=== PATIENT | female | born 2000 | race Caucasian/White ===

== ENCOUNTER 2023-09-06 09:10 | Emergency (ER) | payer OTHER ==
[~2023-09-06] VITALS: Ht 152.4 cm; Wt 120.0 kg
[2023-09-06] MEDS: RABIES VACCINE HUMAN 2.5 INTERNATIONAL UNITS/ML VIAL IM.IMMUN ONE (12:31)
[2023-09-06] MEDS: RABIES IMMUNE GLOBULIN 1500 INTERNATIONAL UNIT/5ML VIAL IM.IMMUN ONE (12:33)
[2023-09-06 13:43] VITALS: BP 131/81; TEMP 97.5; O2SAT 99
== END 2023-09-06 13:44 | disposition home or self-care (01) ==
LOC: M ED 09:10
DX: Z29.14 Encounter for prophylactic rabies immune globulin (principal); Z23 Encounter for immunization

== ENCOUNTER 2023-09-09 10:14 | Emergency (ER) | payer OTHER ==
[~2023-09-09] VITALS: Ht 152.4 cm; Wt 119.7 kg
[2023-09-09] MEDS: RABIES VACCINE HUMAN 2.5 INTERNATIONAL UNITS/ML VIAL IM ONE (12:26)
[2023-09-09 13:12] VITALS: BP 119/75; TEMP 97.8; O2SAT 98
== END 2023-09-09 13:13 | disposition home or self-care (01) ==
LOC: M ED 10:14
DX: Z29.14 Encounter for prophylactic rabies immune globulin (principal); Z23 Encounter for immunization

== ENCOUNTER 2023-09-13 07:31 | Emergency (ER) | payer OTHER ==
[~2023-09-13] VITALS: Ht 152.4 cm; Wt 119.7 kg
[2023-09-13] MEDS: RABIES VACCINE HUMAN 2.5 INTERNATIONAL UNITS/ML VIAL IM ONE (10:06)
[2023-09-13 10:29] VITALS: BP 141/69; TEMP 98.4; O2SAT 100
== END 2023-09-13 10:37 | disposition home or self-care (01) ==
LOC: M ED 07:31
DX: Z29.14 Encounter for prophylactic rabies immune globulin (principal); Z23 Encounter for immunization

== ENCOUNTER 2023-09-20 07:30 | Emergency (ER) | payer OTHER ==
[~2023-09-20] VITALS: Ht 165.1 cm; Wt 119.4 kg
[2023-09-20] MEDS: RABIES VACCINE HUMAN 2.5 INTERNATIONAL UNITS/ML VIAL IM ONE (09:22)
[2023-09-20 09:57] VITALS: BP 134/86; TEMP 97.4; O2SAT 98
== END 2023-09-20 10:03 | disposition home or self-care (01) ==
LOC: M ED 07:30
DX: Z29.14 Encounter for prophylactic rabies immune globulin (principal); Z23 Encounter for immunization

== ENCOUNTER → 2023-09-27 | Outpatient (REF) | payer MEDICAID, OTHER | LOC: M SFHCWAGY 10:28 | PROVIDERS: ATTEND Advanced Practice Midwife | DX: Z12.4 Encounter for screening for malignant neoplasm of cervix (principal) ==